=== PATIENT | female | born 1950 | race Caucasian/White ===

== ENCOUNTER 2016-05-14 10:17 | Day surgery (SDC) | payer OTHER ==
[~2016-05-14 10:17] MED LIST: ACETAMINOPHEN 500 MG TABLET PO PRN; HYDROmorphone HCL 2 MG/ML VIAL IV PRN; MAG HYDROX/ALUMINUM HYD/SIMETH 30 ML UDC PO PRN; MAGNESIUM HYDROXIDE 30 ML UDC PO PRN; ONDANSETRON HCL/PF 2 MG/ML VIAL IV PRN; PROMETHAZINE HCL 25 MG in DEXTROSE 5 % IN WATER 50 ML IV PRN; RINGERS SOLUTION,LACTATED 1,000 ML IV PRN; ZOLPIDEM TARTRATE 5 MG TABLET PO PRN; ceFAZolin SODIUM 1 GM VIAL IV PRN; diphenhydrAMINE HCL 50 MG/ML VIAL IV PRN; oxyCODONE HCL/ACETAMINOPHEN 1 TAB TABLET PO PRN
[2016-05-14] MEDS ORDERED: RINGERS SOLUTION,LACTATED 1,000 ML IV ONE (10:55)
[2016-05-14] MEDS ORDERED: BUPIVACAINE HCL/EPINEPHRINE 50 ML VIAL IJ ONE ×2 (11:40)
--- NOTE | 2016-05-14 12:21 | OR ---
Operative Report - Dictated Report Narrative: Date: 05/14/2016 Surgeon: Ryan Vera M.D. Chemical Educator: Murray Jo PA-C Preoperative diagnosis: Painful retained implants right patella Postoperative diagnosis: Painful retained implants right patella Operation: 1 - Removal of deep implants right patella Retained implants: None Anesthesia: Gen. Plus local Tourniquet time: 43 Minutes at 300 mmHg Estimated blood loss: Minimal Drains: None Specimen: Implants for disposal Complications: None Indications: Mrs. Sol is a 66-year-old female who previously underwent open reduction internal fixation of the right patella and subsequently developed pain related to the implants. They've gone on to heal the fracture however had notable symptoms related to the implants and wished to have these removed.. They were seen in the clinic and discuss the options for treatment. She wished to proceed with surgical removal of deep implants. The risks and benefits alternatives were discussed. Risks of , blood clots, bleeding, infection, nerve/tendon/blood vessel injury, persistent pain, wound complications, and need for additional procedures were discussed. Consent was obtained in the clinic. Procedure: After marking the correct extremity in the preoperative holding area, the patient was taken to the operating room. A timeout was performed. IV antibiotics consisting of Ancef were administered. Adequate anesthesia was placed. The extremity was then prepped and draped in standard sterile fashion. Utilizing the prior incision, sharp dissection was carried through the skin after exsanguinating extremity and inflating tourniquet. Careful dissection was carried down to the implants. The implants were then removed without complication. There did not appear to be any complications related to the fracture nor any signs of infection. Once all the implants were removed, the wound was thoroughly irrigated. The soft tissues were closed in a layered fashion with 0 and 3-0 Vicryl and the skin was closed with aníbal. Final images will be obtained in the recovery room. Sterile dressings of Xeroform, 4 x 4, soft roll, Tim.0.5% Marcaine without epinephrine was infused into the skin edges prior to placing dressings. All sponge, needle, sharp, and instrument counts were correct prior to closing the wound. The patient was awoken and transferred to the postanesthesia care in stable condition.
[2016-05-14 14:38] VITALS: BP 162/82
[2016-05-14] MEDS ORDERED: SENNOSIDES/DOCUSATE SODIUM 1 TAB TABLET PO SCH (21:00)
== END 2016-05-14 10:18 | disposition home or self-care (01) ==
LOC: AMB 10:17
PROVIDERS: ATTEND Orthopaedic Surgery
PROC: 0QPD04Z Removal of Internal Fixation Device from Right Patella, Open Approach (ICD-10-PCS; principal; 2016-05-14 13:30)
DX: T84.84XA Pain due to internal orthopedic prosthetic devices, implants and grafts, initial encounter (principal); E11.9 Type 2 diabetes mellitus without complications; I10 Essential (primary) hypertension; E78.00 Pure hypercholesterolemia, unspecified; Z68.33 Body mass index [BMI] 33.0-33.9, adult

== ENCOUNTER 2016-07-23 10:03 | Day surgery (SDC) | payer OTHER, MEDICARE ==
[~2016-07-23 10:03] MED LIST changes: -ACETAMINOPHEN 500 MG TABLET PO PRN; -HYDROmorphone HCL 2 MG/ML VIAL IV PRN; -MAG HYDROX/ALUMINUM HYD/SIMETH 30 ML UDC PO PRN; -MAGNESIUM HYDROXIDE 30 ML UDC PO PRN; -ONDANSETRON HCL/PF 2 MG/ML VIAL IV PRN; -PROMETHAZINE HCL 25 MG in DEXTROSE 5 % IN WATER 50 ML IV PRN; -ZOLPIDEM TARTRATE 5 MG TABLET PO PRN; -diphenhydrAMINE HCL 50 MG/ML VIAL IV PRN; -oxyCODONE HCL/ACETAMINOPHEN 1 TAB TABLET PO PRN
--- OUTSIDE RECORDS SUMMARY | 2016-07-23 10:07 | XMS REPORT | Continuity of Care Document ---
:1950 Author Organization [facility] ([facility]) Address [address] [place] [address] Phone [phone] Care Team Providers Name Role Phone Tyler Ricci Primary Care Provider [phone] Source Comments This disclosure is being made pursuant to the Care Everywhere program, applicable federal and state laws, and may not contain all informaitonavailable regarding this patient.[facility] ([facility]) Active Allergies and Adverse Reactions Allergen Noted Date Severity Reactions Comments Shellfish Derived Urticaria (Hives),Conjunctivitis Current Medications Prescription Sig. Disp. Refills Start Date End Date Status glimepiride Take 4 mg by mouth 2 Active (AMARYL) 4 mg times daily with meals. tablet Indications: TYPE 2 DIABETES MELLITUS metoPROLol Take 25 mg by mouth 2 Active tartrate 25 mg times daily. Indications: tablet HYPERTENSION aspirin 81 mg EC Take 81 mg by mouth Active tablet daily. HYDROcodone-acetam Take 1-2 Tabs by mouth 3.5 Tab 0 06/19/2013 Active inophen 5-325 mg every 4 hours as needed per tablet for Pain. 1-2 tablets every 4-6 hours as needed for pain. The maximum daily intake of acetaminophen from all sources should not exceed 4000 mg Indications: PAIN levothyroxine 75 Take 75 mcg by mouth Active mcg tablet every morning before breakfast. simvastatin 20 mg Take 1 Tab by mouth every 30 Tab 2 12/24/2013 Active tablet evening. Indications: HYPERCHOLESTEROLEMIA insulin glargine inject 20 Units 5 Each 0 07/16/2014 Active (LanTUS) 100 subcutaneously at unit/mL injection bedtime. Indications: vial TYPE 2 DIABETES MELLITUS Active Problems Problem Noted Date Papillary thyroid carcinoma 04/04/2013 Hypertension 01/16/2013 Diabetic peripheral neuropathy 01/16/2013 Spell of altered cognition 01/16/2013 Metallic taste 01/16/2013 DM type 2 (diabetes mellitus, type 2) 11/28/2012 High blood pressure 02/21/2012 Pseudophakia, both eyes 11/25/2009 PDR (proliferative diabetic retinopathy) 11/13/2008 Overview: Formatting of this note may be different from the original. RIGHT EYE LEFT EYE Date Diagnosis Procedure Comments Diagnosis Procedure Comments 01/06/08 PRP 01/17/08 PRP 02/07/08 PRP 02/1908 PRP 07/31/08 PRP, Focal 11/13/08 PDR, CSME PRP, Avastin PDR PRP 12/11/08 PDR, CSME PRP, focal PDR PRP 02/12/09 PDR PRP 04/06/09 PDR PRP 08/14/2013 20/50 +1 sc PRP -2 sc Other Ocular Diagnoses: 1. Ocular Procedures OD: 1. Ocular Procedures OS: 1. Non-Ocular Medical History: 1.Diabetes Resolved Problems Problem Noted Date Resolved Date Posterior subcapsular cataract 06/10/2009 11/07/2013 Immunizations Name Dates Previously Given Next Due Tdap 11/28/2012 Social History Tobacco Use Types Packs/Day Years Used Date Never Smoker Smokeless Tobacco: Never Used Alcohol Use Drinks/Week oz/Week Comments Yes seldom Last Filed Vital Signs Vital Sign Reading Time Taken Blood Pressure 169/60 10/30/2013 10:15 AM CDT Pulse 70 10/30/2013 6:48 AM CDT Temperature 36.9 C (98.4 F) 10/30/2013 9:37 AM CDT Respiratory Rate 16 10/30/2013 6:48 AM CDT Height 1.588 m (5' 2.5") 10/30/2013 6:48 AM CDT Weight 80.1 kg (176 lb 9.4 oz) 10/30/2013 6:48 AM CDT Body Mass Index 31.76 10/30/2013 6:48 AM CDT Oxygen Saturation 100% 10/30/2013 9:37 AM CDT Plan of Care Patient Goal Type Goal Blood Pressure Blood Pressure below 130/80 Result Component % HBA1C below 7.0 LDLC below 70 Health Maintenance Due Date Last Done Comments Hepatitis B Vaccine (1 of 3 - Primary 1950 Series) Cervical Cancer Screening 1981 Colonoscopy 04/27/2001 FOBT Colon Cancer Screening 2001 Sigmoidoscopy Colon Cancer Screening 2001 DIABETIC: Foot Exam 09/29/2010 Zoster Vaccine 2011 DIABETIC: Hemoglobin A1C 05/31/2013 11/28/2012, 02/24/2010, 12/10/2008 DIABETIC: Retinal Eye Exam 11/15/2013 11/15/2012, 11/15/2012 DIABETIC: Cholesterol 11/28/2013 11/28/2012 Diabetic: Hdl 11/28/2013 11/28/2012 Diabetic: Ldl 11/28/2013 11/28/2012 DIABETIC: Microalbumin 11/28/2013 11/28/2012 DIABETIC: Triglycerides 11/28/2013 11/28/2012 Mammogram 03/06/2014 03/06/2013, 03/06/2013 Influenza Vaccine: Seasonal (#1) 11/17/2015 Osteoporosis Screening (DXA Bone 2016 Density) Pneumococcal Vaccine (1 of 2 - PCV13) 2016 Td Vaccine 11/28/2022 11/28/2012 Tdap Vaccine Completed 11/28/2012 HCV Screening Completed 01/16/2013 Results from Last 3 Months Not on file
[2016-07-23] MEDS ORDERED: RINGERS SOLUTION,LACTATED 1,000 ML IV ONE ×2 (12:25→13:50)
--- NOTE | 2016-07-23 14:21 | OR ---
Operative Report - Dictated Report Narrative: Date: 07/23/2016 Physician: Ryan Vera M.D. Senior Financial Reporting Analyst: Murray Jo PA-C Preoperative diagnosis: Left Shoulder supraspinatus rotator cuff tear, labral tear status post proximal humerus fracture Postoperative diagnosis: Left Shoulder supraspinatus rotator cuff tear, labral tear status post proximal humerus fracture Procedure: Left shoulder arthroscopy with mini open rotator cuff repair, biceps tenotomy, labral debridement Anesthesia: General plus regional Complications: None Estimated blood loss: Minimal Specimens: None Retained implants: [employer] 4.5 mm peek helicoil anchor 2, footprint anchor 2 Drains: None Indications: Mrs. Sol Is a 66 year-old female who has been followed in my clinic with complaints of shoulder pain consistent with rotator cuff pathology as well as labral tear status post proximal humerus fracture. Physical exam and diagnostic imaging were consistent with his complaints and concern for rotator cuff. Conservative measures have failed including, but not limited to, passage of time, activity modification, medications, physical therapy/home exercise program, or injections. The risks, benefits, and alternatives were discussed in clinic. The risks being , bleeding, infection, blood clots, nerve, tendon, ligament, blood vessel injury, persistent pain, arthrosis, stiffness, need for prolonged therapy, need for additional procedures, and persistent symptoms. Consent was obtained in the clinic. Procedure: After marking the correct extremity in the preoperative holding area, a timeout was performed in the operating room. IV antibiotics consisting of Ancef were administered prior to the procedure. A general followed by regional anesthetic was induced by the nurse stress analyst. This was in the supine position, then the patient was transitioned to a beachchair position with all bony prominences well-padded, head in neutral, the nonoperative arm well supported, and the legs padded with SCDs in place. The operative shoulder was then prepped and draped in a standard sterile fashion. Preoperatively the shoulder had full passive range of motion after a gentle manipulation, and no gross instability. After marking out the bony landmarks, saline was infused into the joint through a posterior lateral portal site. A yue incision was made, and the blunt trocar and cannula was introduced into the shoulder joint. An accessory portal was placed in the rotator cuff interval using a spinal needle for guidance. Upon initial evaluation, the biceps tendon showed significant tearing and flattening where it attached to the labrum. The middle glenohumeral ligament was frayed but intact. Subscapularis tendon was intact. The glenoid showed minimal degenerative change. The humeral head articular surface showed mild degenerative change. The anterior labrum was torn but not unstable. The superior labrum was torn but not unstable. The pouch was unremarkable. The posterior labrum was frayed. The supraspinatus tendon was was partially torn with near full-thickness over the entire length of the supraspinatus. The infraspinatus tendon was intact. Utilizing arthroscopic scissors biceps was tenotomized as it inserted onto the labrum. The remaining stump was debrided. The anterior labrum was debrided. A lateral accessory portal was placed and the shaver was utilized in order to debride the rotator cuff as well as greater tuberosity. Attention was then turned to the subacromial space. Subacromial bursectomy was performed utilizing the prior portals. The coracoacromial ligament was frayed. The bursal side of the rotator cuff demonstrated full-thickness tear as identified intra-articularly. The acromial arch was unremarkable. Based on the arthroscopic findings, as well as exam and radiographic findings, it was elected to proceed with a mini open rotator cuff repair. A longitudinal incision centered over the previously identified rotator cuff tear was made just off the edge of the acromion. This was approximately 6 centimeters in length. The deltoid fascia was split sharply in line with its fibers, and blunt dissection was carried through the deltoid muscle. Any remaining subacromial bursal tissue was debrided in order to expose the underlying rotator cuff tear. The rotator cuff tear appeared to be longitudinal orientation. The tuberosity was debrided of its soft tissues producing a bleeding bed for the tendon to be secured to. Two 4.5 mm PEEK helicoil anchor was placed just off the articular surface of the humeral head. A series of horizontal mattress sutures were placed at the prepared edge of the rotator cuff. This allowed for a tension-free return of the tendon to the greater tuberosity. The sutures were then passed longitudinally into 2 4.5 mm PEEK footprint anchor. This was performed and a suture bridge technique. This gave good overall compression to the rotator cuff at the insertion site. The shoulders place a range of motion and had no lift off of the repair site as well as no crepitance or signs of impingement. Full passive range of motion was able to be obtained. Once it was felt that the rotator cuff was adequately repaired, the wounds were thoroughly irrigated. 0 Vicryl was utilized in order to repair the deltoid fascia. 3-0 Vicryl was placed in the subcutaneous tissue. The rotator cuff incision as well as the portal sites were closed with interrupted nylon. Dressings consisting of Xeroform, 4 x 4, ABD, soft roll, and tape were applied. All sponge, needle, blade, and instrument counts were correct prior to closing the wounds. The patient was awoken and transferred to the postanesthesia care unit in stable condition.
[2016-07-23 16:20] VITALS: BP 135/67
== END 2016-07-23 10:04 | disposition home or self-care (01) ==
LOC: AMB 10:03
PROVIDERS: ATTEND Orthopaedic Surgery
PROC: 0LQ10ZZ Repair Right Shoulder Tendon, Open Approach (ICD-10-PCS; 2016-07-23)
PROC: 0RBJ4ZZ Excision of Right Shoulder Joint, Percutaneous Endoscopic Approach (ICD-10-PCS; principal; 2016-07-23 11:05)
DX: M75.102 Unspecified rotator cuff tear or rupture of left shoulder, not specified as traumatic (principal); S43.402A Unspecified sprain of left shoulder joint, initial encounter; E11.9 Type 2 diabetes mellitus without complications; I10 Essential (primary) hypertension; E78.00 Pure hypercholesterolemia, unspecified; Z68.33 Body mass index [BMI] 33.0-33.9, adult

== ENCOUNTER 2017-10-14 17:30 | Emergency (ER) | payer MEDICARE ==
--- NOTE | 2017-10-14 18:11 | ERNOTE ---
Lower Extremity HPI - Narrative Date of Service: 10/14/17 - General Lower Extremities Pain: leg: left Time Seen by Provider: 10/14/17 17:48 Source: patient Exam Limitations: no limitations - Immun/Allergies/Home Medications Immunizations: IMMUNIZATION HX Immunizations Up to Date No History of Influenza Vaccine No Hx Pneumococcal Vaccination No Allergies/Adverse Reactions: Allergies Allergy/AdvReac Type Severity Reaction Status Date / Time iodine Allergy Mild Hives, Verified 10/14/17 17:44 swelling shellfish derived Allergy Mild Hives, Verified 10/14/17 17:44 swelling Home Medications: HOME MEDICATIONS Aspirin [Aspirin Enteric Coated] 81 mg PO DAILY 07/11/12 [Last Taken Unknown] Glimepiride [Amaryl] 4 mg PO BID@0700,1700 07/11/12 [Last Taken Unknown] Metoprolol Tartrate [Lopressor] 25 mg PO BID 07/11/12 [Last Taken Unknown] Levothyroxine Sodium [Synthroid] 100 mcg PO DAILY 10/10/15 [Last Taken Unknown] Acetaminophen [Tylenol] 1,000 mg PO Q4H PRN 05/06/16 [Last Taken 09/29/17 18:30] Insulin Glargine,Hum.rec.anlog [Lantus] 25 units SC DAILY 09/29/17 [Last Taken Unknown] Phenytoin [Dilantin Chewable Tablet] 100 mg PO TID 09/29/17 [Last Taken Unknown] Cyclobenzaprine HCl [Flexeril] 10 mg PO TID PRN #30 tab 10/14/17 [Last Taken Unknown] Ketorolac Tromethamine [Toradol] 10 mg PO Q6H PRN 10/14/17 [Last Taken Unknown] - History of Present Illness Narrative: Pt. comes in with c/o LLE pain for months that is worsened over the past two days. Pt. states that the pain originally started out in her lower back and radiated to her L buttock and down her upper leg and now he pain includes her groin and calf and states that her calf is very tender to touch. Pt. states that the muscle relaxers that she received were helpful but the pain medications were making her feel "loopy". Pt. denies any numbness, tingling, SOB, CP, NVD, or alleviating factors. Pt. states taht palpation, ambulation, and movement exacerbates the pain. Occurred: other - last month and two days ago Location of Incident: home Method of Injury: Reports: no apparent injury Modifying Factors - (Improves): Reports: other - denies Modifying Factors - (Worsens): Reports: movement, other - ambulation and palpation Associated Symptoms: Denies: unable to bear weight, snapping, popping sensation , dizzy/light headedness, headache, weakness, vomiting/diarrhea, bowel/bladder problems Other Injuries: Reports: none Prior Treament: Reports: recently seen, treated by physician, similar symptoms before. Denies: recently hospitalized, currently on antibiotics Review of Systems - Review of Systems Constitutional: Present: no symptoms reported. Absent: fever, chills, weakness , fatigue, malaise EYE: Present: no symptoms reported ENT: Present: no symptoms reported Respiratory: Present: no symptoms reported. Absent: shortness of breath, cough , wheezing Cardiology: Present: no symptoms reported. Absent: chest pain, palpitations, edema Gastrointestinal/Abdominal: Present: no symptoms reported. Absent: nausea, vomiting, diarrhea, abdominal pain Genitourinary: Present: no symptoms reported. Absent: frequency, decreased urinary output Musculoskeletal: Present: muscle pain - L calf, L thigh, L groin Neurological: Present: no symptoms reported. Absent: headache, dizziness/light- headedness, numbness, tingling Endocrine: Present: no symptoms reported All Other Systems: All systems neg except as marked - Patient's Past Medical History Patient History - Medical: Diabetes Type 2 Insulin Dependent, Seizures Patient History - Cardiac/Respiratory: CVA/Stroke, Hypertension, Hyperlipidemia Patient History - Cancer: Thyroid, Surgical Treatment Patient History - Surgical Procedures: Cataracts, Other Patient History - Other: None LMP (females 10-50): Menopausal - Family History Mother Family History - Medical: History Unknown Family History - Cardiac/Respiratory: History Unknown Family History - Cancer: History Unknown Father Family History - Medical: History Unknown Family History - Cardiac/Respiratory: History Unknown Family History - Cancer: History Unknown - Social History Living Situations: home Abuse History: No History of abuse Psych History: No pertinent hx Smoking Status: Never smoker Alcohol Use: rarely Drug Use: none - Immunizations Immunizations Up to Date: No Hx Pneumococcal Vaccination: No History of Influenza Vaccine: No Physical Exam - Physical Exam General Appearance: Present: wd/wn, alert, no apparent distress Head Exam: Present: normal inspection, no evidence of injury, no tenderness w palpation Eye Exam: Normal inspection: bilateral Ears, Nose, Throat: Present: normal ENT inspection, normal pharynx Neck: Present: normal inspection, nontender, supple, full range of motion. Absent: lymphadenopathy (R), lymphadenopathy (L) Respiratory: Present: no respiratory distress, normal breath sounds, no accessory muscle use, chest nontender, lungs clear. Absent: crackles, rales, rhonchi, stridor, wheezing Cardiovascular/Chest: Present: regular rate, rhythm, no murmur, normal peripheral pulses Gastrointestinal/Abdominal: Present: normal bowel sounds, nontender, nondistended, soft Back Exam: Present: normal inspection Extremity Exam: Present: normal range of motion, calf tenderness, extremity edema - trace LLE, other - homans positive Neurological Exam: Present: alert, oriented, normal mood/affect, no motor/ sensory deficits Skin Exam: Present: normal color, warm/dry. Absent: pallor, skin rash ED Progress - Vital Signs Patient's Vital Signs:: I have reviewed the patient's vital signs. Vital Signs: Vital Signs 10/14/17 17:38 Temperature 36.4 C L Pulse Rate 87 Respiratory 15 Rate Blood Pressure 167/50 O2 Sat by Pulse 96 Oximetry - X-Ray X-Ray #1 X-Ray: hip Interpretation: Reviewed by me X-ray Comments: degenerative hip joint with mild degeneration - CT/Ultrasound CT/Ultrasound Narrative: US negative for DVT - Progress/Reassessment Chief Complaint: Lower Extremity Pain/ Injury Departure Clinical Impression: Hip arthritis, Sciatica of left side, SI (sacroiliac) joint dysfunction - Departure Disposition: Home self-care Condition: Good Instructions: Sacroiliac Joint Dysfunction Additional Instructions: Please use muscle relaxers as needed rest for two days adn follow up with primary provider to discuss the need for an MRI. Referrals: Tyler Ricci MD [Primary Care Provider] - Prescriptions: Cyclobenzaprine HCl [Flexeril] 10 mg PO TID PRN #30 tab PRN Reason: MUSCLE SPASMS
[2017-10-14] MEDS ORDERED: ACETAMINOPHEN 500 MG TABLET PO ONE (19:21)
[2017-10-14 20:42] VITALS: BP 171/69
== END 2017-10-14 20:08 | disposition home or self-care (01) ==
LOC: ER 17:30
CPT/HCPCS: 73502; 93971; 99284

== ENCOUNTER 2018-03-29 15:03 | Observation (INO) ==
--- NOTE | 2018-03-29 15:32 | ERNOTE ---
Neuro HPI ER Record Presenting Symptoms: confusion Time Seen by Provider: 03/29/18 15:14 Source: patient, family Exam Limitations: no limitations Immunizations: IMMUNIZATION HX Immunizations Up to Date Yes History of Influenza Vaccine No Hx Pneumococcal Vaccination No Allergies/Adverse Reactions: Allergies Allergy/AdvReac Type Severity Reaction Status Date / Time acetaminophen [From Percocet] Allergy Mild nausea, Verified 03/29/18 15:12 constipation iodine Allergy Mild Hives, Verified 03/29/18 15:12 swelling oxycodone [From Percocet] Allergy Mild nausea, Verified 03/29/18 15:12 constipation shellfish derived Allergy Mild Hives, Verified 03/29/18 15:12 swelling Home Medications: HOME MEDICATIONS Aspirin [Aspirin Enteric Coated] 81 mg PO DAILY 07/11/12 [Last Taken Unknown] Metoprolol Tartrate [Lopressor] 25 mg PO BID 07/11/12 [Last Taken Unknown] Acetaminophen [Tylenol] 1,000 mg PO Q4H PRN 05/06/16 [Last Taken 09/29/17 18:30] blood sugar diagnostic strips See Dose Instructions .ROUTE .MEDSUPPLY #20 ea 10/17/17 [Last Taken Unknown] insulin syringe U-100 with needle 1 mL 27 gauge x 5/8" See Dose Instructions .ROUTE .MEDSUPPLY #50 ea 10/17/17 [Last Taken Unknown] insulin syringe with safety needle 1 mL 31 gauge x 5/16" See Dose Instructions .ROUTE .MEDSUPPLY #100 ea 10/17/17 [Last Taken Unknown] insulin syringe-needle U-100 half unit marking 0.5 mL 30 gauge x 5/16" See Dose Instructions .ROUTE .MEDSUPPLY #100 ea 10/17/17 [Last Taken Unknown] miscellaneous medical supply misc See Dose Instructions .ROUTE .MEDSUPPLY #1 ea 10/17/17 [Last Taken Unknown] pen needle, diabetic 31 gauge x 5/16" See Dose Instructions .ROUTE .MEDSUPPLY #30 ea 10/17/17 [Last Taken Unknown] blood sugar diagnostic strips See Dose Instructions .ROUTE .MEDSUPPLY #100 ea 12/01/17 [Last Taken Unknown] levothyroxine 100 mcg tablet 100 mcg PO DAILY #90 tab 12/09/17 [Last Taken Unknown] levetiracetam 500 mg tablet PO 21 Days #70 tab 02/08/18 [Last Taken Unknown] atorvastatin 40 mg tablet 40 mg PO DAILY #90 tab 02/15/18 [Last Taken Unknown] insulin glargine (U- 100) 100 unit/mL subcutaneous solution 35 unit SUBCUT DAILY #10 ml 02/21/18 [Last Taken Unknown] cilostazol 100 mg tablet 100 mg PO BID 30 Days #60 tab 02/27/18 [Last Taken Unknown] - History of Present Illness Narrative: Patient states that she woke up this morning and developed a headache at approximately 6:15 AM and about 45 minutes after the headache at 7 AM she started having what she described as garbled speech. The symptoms appear to be almost 100% resolved by now, although she did have one brief episode while she was here of speech that was somewhat garbled. The headache is been gone for hours however. Onset: sudden onset Severity: moderate - Character of Deficits Additional Deficits: Present: impaired speech Baseline Cognition: Present: alert, oriented x 4 Baseline Gait: Present: walks w/o assistance Associated Symptoms: Reports: none Review of Systems - Review of Systems Constitutional: Present: See HPI EYE: Present: no symptoms reported ENT: Present: no symptoms reported Respiratory: Present: no symptoms reported Cardiology: Present: no symptoms reported Gastrointestinal/Abdominal: Present: no symptoms reported Genitourinary: Present: no symptoms reported Musculoskeletal: Present: no symptoms reported Skin: Present: no symptoms reported Neurological: Present: See HPI Endocrine: Present: no symptoms reported Hematologic/Lymphatic: Present: no symptoms reported Psych: Present: no symptoms reported Medical History (Last Reviewed 02/08/18 @ 08:12 by Tyler Ricci MD) 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) Diabetes (Chronic) Hyperlipidemia (Chronic) Hypothyroidism (Chronic) Blurred vision CVA (cerebral vascular accident) Colonoscopy refused DKA (diabetic ketoacidoses) Diabetes Diabetes mellitus type 2, uncontrolled Dupuytren's contracture of both hands Essential hypertension Humeral fracture Hypercholesterolemia Hypertension Malignant neoplasm of thyroid gland Mammogram declined Patella fracture Patella repair ORIF of RT patella fx with a tension band per Dr Vera Rotator cuff tear Seizure Surgical History: Surgical History (Last Reviewed 02/08/18 @ 08:12 by Tyler Ricci MD) H/O arthroscopy H/O eye surgery History of thyroid surgery S/P hardware removal S/P rotator cuff repair Family History: Family History (Last Reviewed 02/08/18 @ 08:12 by Tyler Ricci MD) Other Adopted Social History: Preferred Language Armenian Do you have any sabianism or Yes: presbetarian cultural preference? Smoking Status Never smoker Have you smoked in the past 12 No months Do you dip or chew tobacco No Abuse History No History of abuse Psych History No pertinent hx Alcohol Use rarely Drug Use none (Last Updated 02/12/18 @ 07:53 by Tyler Ricci MD) No Social History Section defined Physical Exam - Physical Exam General Appearance: Present: wd/wn, alert, no apparent distress Head Exam: Present: normal inspection, no evidence of injury Eye Exam: Normal inspection: bilateral, PERRL: bilateral Ears, Nose, Throat: Present: normal ENT inspection, H, normal pharynx Neck: Present: normal inspection, nontender Respiratory: Present: no respiratory distress, normal breath sounds, no accessory muscle use, chest nontender, lungs clear Cardiovascular/Chest: Present: regular rate, rhythm, no murmur, normal peripheral pulses Gastrointestinal/Abdominal: Present: normal bowel sounds, nontender, nondistended, soft, no organomegaly Rectal Exam: Present: deferred Back Exam: Present: normal inspection, normal range of motion Extremity Exam: Present: normal inspection, non-tender, no edema, normal range of motion Neurological Exam: Present: alert, oriented, normal mood/affect Skin Exam: Present: normal color, warm/dry Lymphatic Exam: Present: no adenopathy [place] Coma Scale - Assess Eye Opening: Spontaneous Motor: Obeys Commands Verbal: Oriented - Total Coma Scale Total: 15 Initial Stroke Assessment - NIH Stroke Scale Level of Consciousness: Alert LOC Questions (Year and Age): Answers both correctly LOC Commands (open/close eyes/fist): Performs both correctly Lateral Gaze Paresis: None Visual Field Loss: No visual loss Facial Palsy: Normal movement Right Arm Motor (10 sec hold): No drift Left Arm Motor (10 sec hold): No drift Right Leg Motor (5 sec hold): No drift Left Leg Motor (5 sec hold): No drift Limb Ataxia (finger/nose heel/ovalles): Absent Sensory Loss (pinprick arms/legs/face): No sensory loss Language Aphasia (description/naming/reading): No aphasia; normal Dysarthria (speech clarity): Normal articulation Neglect Inattention (visual/tactile/auditory/spatial/person): No neglect Initial Stroke Scale Score:: 0 Progress - Results and Orders Patient's Lab Results:: I have reviewed the patient's lab results. - Vital Signs Patient's Vital Signs:: I have reviewed the patient's vital signs. Vital Signs: Vital Signs 03/29/18 15:08 Temperature 36.6 C Pulse Rate 102 H Respiratory Rate 10 L Blood Pressure 170/84 H O2 Sat by Pulse Oximetry 95 - EKG EKG: NSR, other - Borderline sinus tachycardia EKG read: Reviewed by me - X-Ray X-Ray #1 X-Ray: chest Interpretation: Reviewed by me - CT/Ultrasound CT/Ultrasound Narrative: CT of the head reviewed by me - Progress/Reassessment Chief Complaint: CerebroVascular Accident Plan - Plan Plan: Patient will be admitted to an observation bed for further neurologic monitoring, echocardiogram and likely carotid Doppler ultrasounds. Patient will likely get an outpatient MRI of the head as well. Departure Clinical Impression: TIA (transient ischemic attack) - Departure Disposition: Still a patient Condition: Fair Referrals: Tyler Ricci MD [Primary Care Provider] -
[2018-03-29 15:40] LABS: Hematocrit 39.8 % (37.0-47.0); Hemoglobin 13.2 gm/dL (12.5-16.0); Mean Cell Volume 84.5 fl (78-100); Mean Corpuscular Hgb Conc 33.2 g/dl (32-36); Mean Platelet Volume 9.4 fl (8-12.5); Neutrophil # 6.5 K/mm3 (1.3-6.0); Neutrophil % 75.4 % (42-75.0); Platelet Count 262 K/mm3 (150-450); Red Blood Count 4.71 M/mm3 (4.2-5.4); Red Cell Distribution Width 11.6 % (11.5-14.0); White Blood Count 8.6 K/mm3 (4.0-10.5)
[2018-03-29 15:48] LABS: Prothrombin Time (Patient) 9.9 Seconds (9.0-11.0)
[2018-03-29 15:50] LABS: INR 0.99 INR (0.90-1.10)
[2018-03-29 15:55] LABS: ALT 38 U/L (19-67); AST 18 U/L (0-48); Albumin * 3.6 gm/dl (3.4-5.0); Alkaline Phosphatase * 103 U/L (50-170); Anion Gap 14.3 mmol/L (6.8-13.8); Bilirubin, Total 0.3 mg/dL (0.0-1.1); Blood Urea Nitrogen 25 mg/dL (3-23); Ca. Corrected For Albumin 9.3 mg/dL (8.4-10.2); Calcium * 9.3 mg/dL (7.9-10.9); Carbon Dioxide 29.4 mmol/L (24-32.6); Chloride 101 mmol/L (97-106); Glucose * 122 mg/dL (70-110); Magnesium 1.8 mg/dL (1.2-2.8); Potassium 3.7 mmol/L (3.4-4.6); Sodium 141 mmol/L (132-142); Total Protein 7.3 gm/dL (6.2-8.2); Troponin I Less than 0.017 ng/mL (0.00-0.10)
[2018-03-29] MEDS ORDERED: ACETAMINOPHEN 500 MG TABLET PO PRN (16:24)
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
[2018-03-29] MEDS: INSULIN REGULAR, HUMAN 100 UNITS/ML VIAL SC SCH ×2 (17:35→20:33)
[2018-03-29] MEDS: levETIRAcetam 500 MG TABLET PO SCH (20:22)
[2018-03-29] MEDS: METOPROLOL TARTRATE 25 MG TABLET PO SCH (20:23)
[2018-03-29] MEDS: CILOSTAZOL 100 MG TABLET PO SCH (20:29)
[2018-03-29] MEDS ORDERED: levETIRAcetam 500 MG TABLET PO SCH (21:00)
[2018-03-30] MEDS ORDERED: LEVOTHYROXINE SODIUM 100 MCG TABLET PO SCH (07:00)
--- NOTE | 2018-03-30 07:16 | DS ---
(1) Headache Problem: Acute (2) TIA (transient ischemic attack) Problem: Acute (3) Seizure disorder as sequela of cerebrovascular accident Problem: Chronic (4) Diabetes Problem: Chronic Qualifiers: Diabetes mellitus type: type 2 Diabetes mellitus termite control representative insulin use: with termite control representative use Diabetes mellitus complication status: with circulatory complication Diabetes mellitus complication detail: with peripheral angiopathy without gangrene Qualified Code(s): E11.51 - Type 2 diabetes mellitus with diabetic peripheral angiopathy without gangrene; Z79.4 - long term care social worker (current) use of insulin (5) Discharge planning issues Problem: Acute Description of Stay: Pt admitted due to an expressive aphasia yesterday and concerns for her elevated BP's and continuing ESCOBEDO. All her symptoms did resolve by this am and she had no recurrence of aphasia. She was noted to have a low BS to 56 this am and she states that this happens from time to time so will reduce her long acting insulin. she does have a significant murmur - c/w , will do ECHO and carotid dopplers outpatient to look at possible causes of her TIA. Will continue her on her daily ASA and pletal for now. Procedures Performed: none Results and Findings: Lab Pending Results 03/29/18 15:30: WBC 8.6, RBC 4.71, Hgb 13.2, Hct 39.8, MCV 84.5, MCH 28.0, MCHC 33.2, RDW 11.6, Plt Count 262, MPV 9.4, Immature Gran % (Auto) 0.20, Immature Gran # (Auto) 0.02, Neutrophils % 75.4 H, Lymphocytes % 17.0 L, Monocytes % 5.5, Eosinophils % 1.2, Basophils % 0.7, Nucleated RBC % 0.0, Neutrophils # 6.5 H, Lymphocytes # 1.46 L, Monocytes # 0.5, Eosinophils # 0.1, Absolute Basophils 0.1 03/29/18 15:30: PT 9.9, INR (Anticoag Therapy) 0.99, PTT ([place]) 26.0 03/29/18 15:30: Sodium 141, Plasma Sodium 141, Potassium 3.7 D, Chloride 101, Carbon Dioxide 29.4, Anion Gap 14.3 H, BUN 25 H, Creatinine 1.00, Est GFR (Non- Af Amer) 59 L, BUN/Creatinine Ratio 25.0 H, Random Glucose 122 H, Calcium 9.3, Calcium Adj for Albumin 9.3, Magnesium 1.8, Total Bilirubin 0.3, AST 18, ALT 38, Alkaline Phosphatase 103, Troponin I Less than 0.017, Total Protein 7.3, Albumin 3.6 Discharge Location: Home Disposition: Home self-care Condition: Good Discharge Diet: Consistent carbs Referrals: Tyler Ricci MD [Primary Care Provider] - One Week Prescriptions (Any new or edited meds): Insulin Glargine,Hum.rec.anlog [Lantus] 30 units SC DAILY #3 vial Complete Home Medications List: Complete Home Medication List: Aspirin [Aspirin Enteric Coated] 81 mg PO DAILY 07/11/12 Metoprolol Tartrate [Lopressor] 25 mg PO BID 07/11/12 Acetaminophen [Tylenol] 1,000 mg PO Q4H PRN 05/06/16 levothyroxine 100 mcg tablet 100 mcg PO DAILY #90 tab 12/09/17 levetiracetam 500 mg tablet 1,000 mg PO BID 21 Days #70 tab 02/08/18 atorvastatin 40 mg tablet 40 mg PO DAILY #90 tab 02/15/18 cilostazol 100 mg tablet 100 mg PO BID 30 Days #60 tab 02/27/18 Insulin Glargine,Hum.rec.anlog [Lantus] 30 units SC DAILY #3 vial 03/30/18 Amb Orders for Discharge: US Carotid Duplex Comp Bilat * Time Frame: 1 Week, Location: Radiology US Echocardiogram Complete * Time Frame: 1 Week, Location: Radiology
[2018-03-30] MEDS: INSULIN REGULAR, HUMAN 100 UNITS/ML VIAL SC SCH (07:32)
[2018-03-30] MEDS ORDERED: INSULIN GLARGINE,HUM.REC.ANLOG 100 UNITS/ML VIAL SC SCH (09:00)
[2018-03-30] MEDS ORDERED: ASPIRIN 81 MG TABLET.DR PO SCH (09:00)
[2018-03-30] MEDS ORDERED: ROSUVASTATIN CALCIUM 20 MG TABLET PO SCH (09:00)
[2018-03-30] MEDS: levETIRAcetam 500 MG TABLET PO SCH (10:31)
[2018-03-30] MEDS: METOPROLOL TARTRATE 25 MG TABLET PO SCH (10:33)
[2018-03-30] MEDS: CILOSTAZOL 100 MG TABLET PO SCH (10:33)
[2018-03-30 10:34] VITALS: BP 153/60
== END 2018-03-30 11:10 | disposition home or self-care (01) ==
LOC: MS 15:03 → ER 15:03 → MS 16:04
PROVIDERS: ADMIT Family Medicine; ATTEND Family Medicine
DX: Z79.4 Long term (current) use of insulin; I63.9 Cerebral infarction, unspecified; E11.51 Type 2 diabetes mellitus with diabetic peripheral angiopathy without gangrene; R01.1 Cardiac murmur, unspecified; R51 Headache; I10 Essential (primary) hypertension; G45.9 Transient cerebral ischemic attack, unspecified; E11.65 Type 2 diabetes mellitus with hyperglycemia
CPT/HCPCS: 36415; 70450; 80053; 83735; 84484; 85025; 85610; 85730; 93005; 96372; 99285; G0378